=== PATIENT | female | born 1950 | race Caucasian/White ===

== ENCOUNTER 2016-04-07 11:38 | Emergency (ER) | payer OTHER ==
[2016-04-07] MEDS ORDERED: ACETAMINOPHEN 325 MG TABLET PO ONE ×2 (12:24→12:26)
--- NOTE | 2016-04-07 14:29 | ER Document Report ---
ED General - General Chief Complaint: Fall Injury Stated Complaint: FALL WRIST PAIN Time seen by provider: 14:10 Mode of Arrival: Ambulatory Information source: Patient Notes: 66-year-old female walking this morning tripped and fell landing on outstretched left wrist and left knee. She's been ambulatory since then did not strike her head or lose consciousness. She has minimal discomfort in the anterior left knee but notes pain bruising and swelling to the thumb side of her left wrist. Patient reports last week having subjective fever chills nausea cough earache sore throat consistent with viral syndrome but says all symptoms are resolved now Physical Exam: General: Alert, appears well. HEENT: Normocephalic. Atraumatic. PERRLA. Extraocular movements intact. Oropharynx clear. Neck: Supple. Non-tender. Respiratory: No respiratory distress. Clear and equal breath sounds bilaterally. Cardiovascular: Regular rate and rhythm. Abdominal: Normal Inspection. Soft, non-tender. No distension. Normal Bowel Sounds. Right upper and lower extremities have good range of motion without deformity. Left upper extremity has bruising and swelling over the distal radius. She has full range of motion shoulder and elbow without discomfort. Radial median and ulnar nerve function to the left hand is intact. She has 2+ radial ulnar pulses left hand. Brisk upper refill all fingers. No tenderness palpation on the ulnar side of the left wrist. Left lower extremity has full range of motion all joints with no gross deformity to the left knee and no tenderness to palpation Neurological: Speech clear mentation normal Psychological: Normal affect. Normal Mood. Skin: Warm. Dry. Normal color. TRAVEL OUTSIDE OF THE [place] IN LAST 30 DAYS: No - Related Data Allergies/Adverse Reactions: No Known Allergies Allergy (Verified 04/07/16 12:27) Past Medical History - Social History Smoking Status: Never Smoker Chew tobacco use (# tins/day): No Family History: Reviewed & Not Pertinent Patient has suicidal ideation: No Patient has homicidal ideation: No Renal/ Medical History: Denies: Hx Peritoneal Dialysis Past Surgical History: Reports: Hx Orthopedic Surgery Review of Systems - Review of Systems Constitutional: See HPI EENT: denies: Ear pain, Throat pain Cardiovascular: denies: Chest pain Respiratory: See HPI Gastrointestinal: See HPI Genitourinary: denies: Burning Female Genitourinary: denies: Musculoskeletal: denies: Back pain Hematologic/Lymphatic: denies: Swollen glands Neurological/Psychological: denies: Weakness, Numbness Physical Exam - Vital signs Vitals: Temp Pulse Resp BP Pulse Ox 98.0 F 73 16 171/83 H 97 04/07/16 11:45 04/07/16 11:45 04/07/16 11:45 04/07/16 11:45 04/07/16 11:45 Course - Re-evaluation Re-evalutation: 04/07/16 14:26 Patient be placed in left wrist Osei receive prescription for medication for pain. He has an orthopedist Dr. [facility]reaga [facility] and she'll be asked to follow with him within the next 2 days for further treatment - Vital Signs Vital signs: Temp Pulse Resp BP Pulse Ox 98.0 F 73 16 171/83 H 97 04/07/16 11:45 04/07/16 11:45 04/07/16 11:45 04/07/16 11:45 04/07/16 11:45 - Diagnostic Test Radiology reviewed: Image reviewed, Reports reviewed Discharge - Discharge Clinical Impression: Wrist fracture Qualifiers: Encounter type: initial encounter Fracture type: closed Laterality: left Qualified Code(s): S62.102A - Fracture of unspecified carpal bone, left wrist, initial encounter for closed fracture Condition: Stable Disposition: HOME, SELF-CARE Additional Instructions: Fracture You have a fracture. The typical broken bone requires only protection and sufficient time for healing. "Setting" is necessary only if the bones are crooked or out of position. The physician will re-assess you periodically to make certain that the bone heals without complications. It's important that you follow the instructions given you. The initial treatment is immobilization, elevation of the injury, and cold packs. Not all fractures require a cast. Depending on the location and type of fracture, immobilization may consist of a splint, cast, sling, bulky dressing , or simply rest. The length of time required for healing depends on the location and type of fracture, and on the age of the patient. The treatment plan the physician has outlined for you is customized to your fracture and health condition. Call the doctor or return at once if pain becomes severe, or if severe swelling or numbness develop. Follow-up with your orthopedist Dr. Arreaga within 2 days for further evaluation and treatment or with orthopedics locally Dr. Sagar Howard Prescriptions: Oxycodone HCl/Acetaminophen [Percocet 5-325 mg Tablet] 1 tab PO Q6H PRN #15 tablet PRN Reason: For Pain Referrals: SAGAR HOWARD DO [ACTIVE STAFF] - 04/09/16
[2016-04-07 14:41] VITALS: BP 170/80
== END 2016-04-07 14:41 | disposition home or self-care (01) ==
LOC: ER 11:38
DX: S52.592A Other fractures of lower end of left radius, initial encounter for closed fracture (principal); W19.XXXA Unspecified fall, initial encounter; Y92.481 Parking lot as the place of occurrence of the external cause
CPT/HCPCS: 99283